=== PATIENT | female | born 1950 | race Hispanic/Latino ===

== ENCOUNTER 2025-08-05 07:15 | Day surgery (SDC) | payer MEDICARE ==
[~2025-08-05] VITALS: Ht 142.2 cm; Wt 40.8 kg
[2025-08-05] VITALS (10 sets, daily range): BP systolic 119–154; BP diastolic 79–89; PULSE 64–73; RESP 14–18; TEMP 97.3–98.9
[2025-08-05] MEDS: 0.9%NACL 1000ML 1,000 ML IV ONE (08:30)
[2025-08-05] MEDS ORDERED: METO-391 PO (08:40)
[2025-08-05] MEDS ORDERED: PRED5DRO25 OS (08:40)
[2025-08-05] MEDS ORDERED: PRAV20TA59 PO (08:40)
[2025-08-05] MEDS ORDERED: MVIT PO (08:40)
[2025-08-05] MEDS ORDERED: FLUT1DIS4 IH (08:40)
[2025-08-05] MEDS ORDERED: FLUT15.845 NS (08:40)
[2025-08-05] MEDS ORDERED: BUDE0.5A3 NEB (08:40)
[2025-08-05] MEDS ORDERED: AMLO-257 PO (08:40)
[2025-08-05] MEDS ORDERED: CETI10TA87 PO (08:40)
[2025-08-05] MEDS ORDERED: GABA-529 PO (08:40)
[2025-08-05] MEDS ORDERED: BRIM5DRO OU (08:40)
[2025-08-05] MEDS ORDERED: CALC-1198 PO (08:40)
[2025-08-05] MEDS ORDERED: METF-444 PO (08:40)
[2025-08-05] MEDS ORDERED: LISI40TA15 PO (08:40)
[2025-08-05] MEDS ORDERED: ALEN70TA80 PO (08:40)
[2025-08-05] MEDS ORDERED: ASCO100T12 PO (08:40)
[2025-08-05] MEDS ORDERED: PANT40TA54 PO (08:40)
[2025-08-05] MEDS ORDERED: TIZA2CAP9 PO (08:40)
[2025-08-05] MEDS ORDERED: IPRA3AMP24 NEB (08:40)
[2025-08-05] MEDS ORDERED: ASPI-1005 PO (08:40)
--- NOTE | 2025-08-05 11:15 | NUR ---
Full and complete discharge instructions given to Patient and Family both verbally and in writing. Tolerated fluids and voided in bathroom. PIV removed with catheter tip intact. W/C to POV with Family to home.
== END 2025-08-05 11:10 | disposition home or self-care (01) ==
LOC: DAH 07:15 → ENDO 07:15
PROVIDERS: ATTEND Surgery
DX: K92.1 Melena (principal); K57.30 Diverticulosis of large intestine without perforation or abscess without bleeding; K62.1 Rectal polyp; I10 Essential (primary) hypertension; K64.0 First degree hemorrhoids; E78.5 Hyperlipidemia, unspecified; F41.9 Anxiety disorder, unspecified; J45.909 Unspecified asthma, uncomplicated; M19.90 Unspecified osteoarthritis, unspecified site; I35.0 Nonrheumatic aortic (valve) stenosis; Z80.0 Family history of malignant neoplasm of digestive organs; Z79.899 Other long term (current) drug therapy; Z98.890 Other specified postprocedural states
CPT/HCPCS: 82948 ×2; 45380; J7030; J2704; A4620; A4215; J3490